=== PATIENT | male | born 1950 | race Caucasian/White ===

== ENCOUNTER 2018-02-22 09:18 | Emergency (ER) | payer MEDICARE ==
[~2018-02-22] VITALS: Ht 175.3 cm; Wt 70.3 kg
--- OUTSIDE RECORDS SUMMARY | 2018-02-22 09:20 | XMS REPORT | Clinical Summary ---
Author Author [facility] Address Unknown Phone Unavailable Care Team Providers Care Senior Lead Developer Name Role Phone Quincy Jasso MD PCP Unavailable Allergies No Known Allergies Current Medications Prescription Sig. Disp. Refills Start End Date Status Date diclofenac (VOLTAREN) 1 % Apply topically 4 (four) 5 g 0 07/19/19 Active gel times a day. APPLY 2GM 17 ON LEFT ANKLE/FOOT Active Problems Not on file Family History Medical History Relation Name Comments Heart disease Mother Hypertension Mother Relation Name Status Comments Mother Social History Tobacco Use Types Packs/Day Years Used Date Never Smoker Alcohol Use Drinks/Week oz/Week Comments No Sex Assigned at Date Recorded Not on file Last Filed Vital Signs Not on file Plan of Treatment Health Maintenance Due Date Last Done Comments COLON CANCER SCREENING 1998 SHINGRIX VACCINE (#1) 1998 ZOSTER VACCINE 2008 PNEUMOCOCCAL 2013 POLYSACCHARIDE VACCINE AGE 65 AND OVER PNEUMOCOCCAL-13 2013 INFLUENZA VACCINE 11/14/2017 Results Not on fileafter 02/21/2017 Insurance Payer Benefit Subscriber ID Type Phone Address Plan / Group [facility] MEDICARE A[employer] xxxxxxxxx HMO MEDICARE COMPLETE [facility] Home: [place] [address] [employer] [address] [place] [id number]
[2018-02-22] MEDS ORDERED: SODIUM CHLORIDE 0.9% 1000ML 1,000 ML IV STA (09:48)
[2018-02-22] MEDS ORDERED: PANTOPRAZOLE 40 MG 10ML VIAL IV NR (10:00)
[2018-02-22 10:35] LABS: BASOPHILS % 0.5 % (0.0-1.0); EOSINOPHILS % 0.2 % (0.0-6.0); HEMOGLOBIN 15.6 g/dL (14.0-18.0); LYMPHOCYTES # (AUTO) 0.9 (1.0-3.2); LYMPHOCYTES % 10.7 % (18.0-39.1); MEAN CORPUSCULAR HGB CONC 33.9 g/dL (31-35); MEAN CORPUSCULAR VOLUME 91.3 fL (81-99); MONOCYTES # (AUTO) 0.4 (0.2-0.8); MONOCYTES % 4.7 % (4.4-11.3); NEUTROPHILS # (AUTO) 6.7 (2.1-6.9); NEUTROPHILS % 83.3 % (38.7-80.0); PLATELET COUNT 218 x10e3/uL (140-360); RED BLOOD COUNT 5.04 x10e6/uL (4.3-5.7); RED CELL DISTRIBUTION WIDTH 14.1 % (11.7-14.4)
[2018-02-22 10:41] LABS: INR 1.01; PARTIAL THROMBOPLASTIN TIME 40.2 seconds (23.8-35.5); PROTHROMBIN TIME 14.2 seconds (11.9-14.5)
[2018-02-22 10:51] LABS: ALANINE AMINOTRANSFERASE 24 IU/L (0-55); ALBUMIN 4.1 g/dL (3.5-5.0); ALKALINE PHOSPHATASE 61 IU/L (40-150); ANION GAP 15.8 mmol/L (8-16); BLOOD UREA NITROGEN 17 mg/dL (7-26); BUN/CREATININE RATIO 28 (6-25); CARBON DIOXIDE 24 mmol/L (22-29); CHLORIDE 101 mmol/L (98-107); CREATININE, SERUM 0.61 mg/dL (0.72-1.25); EST GLOMERULAR FILTRATION RATE > 60 ML/MIN (60-); GLUCOSE 142 mg/dL (74-118); POTASSIUM 3.8 mmol/L (3.5-5.1); SODIUM 137 mmol/L (136-145)
--- NOTE | 2018-02-22 11:22 | Diagnostic Imaging Report ---
PROCEDURE: CHEST SINGLE (PORTABLE) COMPARISON: None. INDICATIONS: ABDOMINAL PAIN, RECTAL BLEEDING FINDINGS: LUNGS: No consolidations or edema. PLEURA: No effusions or pneumothorax. Left hemidiaphragm is elevated. Left upper lobe calcified granuloma. HEART & MEDIASTINUM: The heart is within normal size-limits. BONES & SOFT TISSUES: No acute findings. CONCLUSION: No acute thoracic abnormality. Dilshad Davenport D.O. Dictated by: Dilshad Davenport D.O. on 02/22/2018 at 11:30 Electronically approved by: Dilshad Davenport D.O. on 02/22/2018 at 11:30
[2018-02-22 11:33] LABS: BILIRUBIN,URINE NEGATIVE (NEGATIVE); CLARITY,URINE SL CLOUDY (CLEAR); COLOR,URINE YELLOW (YELLOW); KETONES,URINE NEGATIVE (NEGATIVE); LEUKOCYTE ESTERASE ,URINE 2+ (NEGATIVE); NITRITE,URINE NEGATIVE (NEGATIVE); PROTEIN,URINE DIPSTICK NEGATIVE (NEGATIVE); URINE UROBILINOGEN 0.2 mg/dL (0.2 - 1)
[2018-02-22 11:49] LABS: EPITHELIAL CELLS,URINE RARE /LPF
[2018-02-22 13:04] VITALS: BP 117/77
== END 2018-02-22 13:13 | disposition home or self-care (01) ==
LOC: ER 09:18
DX: K62.5 Hemorrhage of anus and rectum (principal); K64.8 Other hemorrhoids; N30.90 Cystitis, unspecified without hematuria
CPT/HCPCS: 36415; 71045; 80053; 81001; 82270; 83735; 85025; 85610; 85730; 86850; 86900; 93005; 99284; J7030